=== PATIENT | female | born 1965 | race Caucasian/White ===

== ENCOUNTER → 2017-01-08 | Outpatient (CLI) | payer OTHER ==
[~2017-01-08] VITALS: Ht 157.5 cm; Wt 70.2 kg
[~2017-01-08] MED LIST: CLARITIN,ALAVAR10 MG PO; FISH OIL + VIT1 EACH PO; FISH OIL 1,0001 EAC7 PO; SILVADENE20 GM TP; TAMOXIFEN CITRA20 MG PO
== END | disposition home or self-care (01) ==
LOC: AMB 07:31
DX: Z12.11 Encounter for screening for malignant neoplasm of colon (principal); D12.5 Benign neoplasm of sigmoid colon; K63.5 Polyp of colon; K62.89 Other specified diseases of anus and rectum; Z85.3 Personal history of malignant neoplasm of breast; Z79.82 Long term (current) use of aspirin; Z79.811 Long term (current) use of aromatase inhibitors; Z82.49 Family history of ischemic heart disease and other diseases of the circulatory system; Z82.5 Family history of asthma and other chronic lower respiratory diseases
CPT/HCPCS: 88305; J1100; J2250; J2405